=== PATIENT | female | born 1955 | race Caucasian/White ===

== ENCOUNTER → 2020-03-28 07:18 | Outpatient (CLI) | payer BC, SELFPAY ==
--- NOTE | ~2020-03-28 | MM_ITS ---
EXAMINATION: MM screening saniya BI w tyron HISTORY: Screening mammogram TECHNIQUE: Craniocaudal and mediolateral oblique 3-D tomosynthesis images were obtained and synthetic 2-D images were generated. CAD analysis was submitted and interpreted. COMPARISON: 06/23/2018, 02/27/2017 bilateral digital screening mammogram examinations BREAST PARENCHYMAL COMPOSITION: There are scattered areas of fibroglandular density. FINDINGS: Stable bilateral benign intramammary lymph nodes. There is no evidence of suspicious mass, calcification, or architectural distortion to suggest malignancy in either breast. There has been no suspicious interval change. IMPRESSION: 1. No mammographic evidence of malignancy. 2. Recommend routine screening mammography in one year. BI-RADS Category 2: Benign finding(s). Reviewed, dictated and finalized at location A. ESPONDENCE TRANSCRIBER
== END ==
PROVIDERS: PCP Student in an Organized Health Care Education/Training Program; Visit Provider Obstetrics & Gynecology
DX: Z12.31 Encounter for screening mammogram for malignant neoplasm of breast (principal)
CPT/HCPCS: 77063; 77067

== ENCOUNTER 2020-08-10 13:31 | Outpatient (CLI) | payer BC, SELFPAY ==
--- NOTE | ~2020-08-10 | US_ITS ---
EXAMINATION: US venous doppler LE RT DATE: 08/10/2020 14:14 INDICATION: Right lower limb pain. TECHNIQUE: Grayscale ultrasound images without and with compression and Doppler ultrasound images of the right lower extremity veins were obtained. COMPARISON: Ultrasound 11/13/2017 FINDINGS: The visualized portions of right common femoral vein, profunda (deep) femoral vein, femoral vein, pop liteal vein, peroneal veins, posterior tibial veins, and greater saphenous vein outflow are patent. IMPRESSION: 1. No deep venous thrombosis. Reviewed, dictated and finalized at location A.
== END 2020-08-10 13:32 | disposition home or self-care (01) ==
PROVIDERS: PCP Student in an Organized Health Care Education/Training Program; Visit Provider Registered Nurse
DX: M79.661 Pain in right lower leg (principal); M79.89 Other specified soft tissue disorders
CPT/HCPCS: 93971

== ENCOUNTER → 2021-04-03 10:28 | Outpatient (CLI) | payer BC, SELFPAY ==
--- NOTE | ~2021-04-03 | DEXA_ITS ---
Bone Density Report Name: SALMA ROWAN Age: 65 Sex: Female Ethnicity: White Date of : 1955 Indication: monitoring treatment; height loss; hysterectomy; postmenopausal Referring Provider: NANCY FELTON Study: Bone densitometry was performed. Exam Date: April 03, 2021 Accession number: [id number] Bone Density: Region BMD T-score Z-score Classification AP Spine (L1-L4) 0.954 -0.8 0.9 Normal Femoral Neck (Left) 0.912 0.6 2.0 Normal Total Hip (Left) 1.048 0.9 2.1 Normal Femoral Neck (Right) 0.919 0.6 2.1 Normal Total Hip (Right) 1.104 1.3 2.5 Normal Total Hip Mean 1.076 1.1 2.3 Normal World Health Organization criteria for BMD impression classify patients as: Normal (T-score at or above -1.0), Osteopenia (T-score between -1.0 and -2.5), or Osteoporosis (T-score at or below -2.5). 10-year Fracture Risk: FRAX not reported because: All T-scores for Spine Total, Hip Total, Femoral Neck at or above -1.0 Treated for osteoporosis Previous Exams: Region Exam Age BMD T-score BMD Change BMD Change Date g/cm2 vs Baseline vs Previous AP Spine(L1-L4) 04/03/2021 65 0.954 -0.8 0.046* -0.003 01/08/2019 63 0.958 -0.8 0.049* -0.029* 01/12/2016 60 0.987 -0.5 0.079* 0.059* 11/26/2013 58 0.928 -1.1 0.020 -0.007 11/10/2011 56 0.936 -1.0 0.027* 0.020 09/24/2009 53 0.915 -1.2 0.007 0.007 04/23/2007 51 0.909 -1.3 Total Hip(Left) 04/03/2021 65 1.048 0.9 -0.024 0.006 01/08/2019 63 1.042 0.8 -0.030* -0.041* 01/12/2016 60 1.083 1.2 0.011 0.067* 11/26/2013 58 1.015 0.6 -0.057* -0.012 11/10/2011 56 1.027 0.7 -0.045* -0.022 09/24/2009 53 1.049 0.9 -0.024 -0.024 04/23/2007 51 1.072 1.1 Total Hip(Right) 04/03/2021 65 1.104 1.3 0.105* 0.055* 01/08/2019 63 1.049 0.9 0.051* -0.009 01/12/2016 60 1.058 0.9 0.059* 0.086* 11/26/2013 58 0.971 0.2 -0.027 -0.021 11/10/2011 56 0.992 0.4 -0.006 -0.010 09/24/2009 53 1.002 0.5 0.003 0.003 04/23/2007 51 0.998 0.5 *Denotes significance at 95% confidence level, LSC for AP Spine = 0.022 g/cm2, LSC for Total Hip = 0.027 g/cm2 Clinical Information Provided by Patient:
== END ==
PROVIDERS: PCP Student in an Organized Health Care Education/Training Program; Visit Provider Obstetrics & Gynecology
DX: Z13.820 Encounter for screening for osteoporosis (principal)
CPT/HCPCS: 77080

== ENCOUNTER → 2021-05-11 12:32 | Outpatient (CLI) | payer BC, SELFPAY ==
--- NOTE | ~2021-05-11 | MM_ITS ---
EXAMINATION: MM screening saniya BI w tyron HISTORY: Screening TECHNIQUE: Craniocaudal and mediolateral oblique 3-D tomosynthesis images were obtained and synthetic 2-D images were generated. CAD analysis was submitted and interpreted. COMPARISON: Comparison to multiple prior studies sequentially, with oldest reviewed study dated 07/2014. BREAST PARENCHYMAL COMPOSITION: There are scattered areas of fibroglandular density. FINDINGS: There is no evidence of suspicious mass, calcification, or architectural distortion to sugg est malignancy in either breast. There has been no suspicious interval change. IMPRESSION: 1. No mammographic evidence of malignancy. 2. Recommend routine screening mammography in one year. BI-RADS Category 1: Negative Reviewed, dictated and finalized at location A. OBIOLOGY QUALITY CONTROL TECHNICIAN
== END ==
PROVIDERS: PCP Student in an Organized Health Care Education/Training Program; Visit Provider Obstetrics & Gynecology
DX: Z12.31 Encounter for screening mammogram for malignant neoplasm of breast (principal)
CPT/HCPCS: 77063; 77067

== ENCOUNTER → 2022-07-21 08:02 | Outpatient (CLI) | payer MEDICARE, SELFPAY ==
--- NOTE | ~2022-07-21 | MM_ITS ---
EXAMINATION: MM screening saniya BI w tyron HISTORY: Screening TECHNIQUE: Craniocaudal and mediolateral oblique 3-D tomosynthesis images were obtained and synthetic 2-D images were generated. CAD analysis was submitted and interpreted. COMPARISON: Comparison to multiple prior studies sequentially, with oldest reviewed study dated 01/11. BREAST PARENCHYMAL COMPOSITION: There are scattered areas of fibroglandular density. FINDINGS: There is no evidence of suspicious mass, calcification, or architectural distortion to sugg est malignancy in either breast. There has been no suspicious interval change. IMPRESSION: 1. No mammographic evidence of malignancy. 2. Recommend routine screening mammography in one year. BI-RADS Category 1: Negative Reviewed, dictated and finalized at location A.
== END ==
PROVIDERS: PCP Student in an Organized Health Care Education/Training Program; Visit Provider Obstetrics & Gynecology
DX: Z12.31 Encounter for screening mammogram for malignant neoplasm of breast (principal)
CPT/HCPCS: 77063; 77067

== ENCOUNTER 2023-04-08 12:11 | Outpatient (CLI) | payer MEDICARE, SELFPAY ==
--- NOTE | ~2023-04-08 | DEXA_ITS ---
Bone Density Report Name: SALMA ROWAN Age: 67 Sex: Female Ethnicity: White Date of : 1955 Indication: postmenopausal; screening for osteoporosis; height loss; cancer; hysterectomy; Referring Provider: WILBER ROMERO Study: Bone densitometry was performed. Exam Date: April 08, 2023 Accession number: [id number] Bone Density: Region BMD T-score Z-score Classification AP Spine(L1-L4) 0.878 -1.5 0.3 Osteopenia Femoral Neck (Left) 0.861 0.1 1.7 Normal Total Hip (Left) 1.031 0.7 2.0 Normal Femoral Neck (Right) 0.857 0.1 1.7 Normal Total Hip (Right) 1.052 0.9 2.2 Normal Femoral Neck Mean 0.859 0.1 1.7 Normal Total Hip Mean 1.042 0.8 2.1 Normal World Health Organization criteria for BMD impression classify patients as: Normal (T-score at or above -1.0), Osteopenia (T-score between -1.0 and -2.5), or Osteoporosis (T-score at or below -2.5). 10-year Fracture Risk(1): Major Osteoporotic Fracture 6.6% Hip Fracture 0.2% Reported Risk Factors: [place] (), Neck BMD=0.857, BMI=29.8 (1) FRAX(R) Version 3.08. Fracture probability calculated for an untreated patient. Fracture probability may be lower if the patient has received treatment. Clinical Information Provided by Patient: Has used the following medications: Vitamin D, Calcium Has the following medical conditions: Cancer, Hysterectomy Patient maximum height was 64 Menopause Age: 55 No regular weight bearing exercise Drinks caffeinated beverages Onset of menses at age 11 Number of children 1 Impression: The patient has low bone mass, based on the Total Spine T-score. Discussion: BONE DENSITY IS LOW AT ONE OR MORE SKELETAL SITES. This patient's lowest T-score is low at one or more skeletal sites. It meets the World Health Organization's (WHO) criteria for ?low bone mass? (T-score between -1.0 and -2.5). The patient's 10-year risk of fracture as calculated by FRAX is less than the threshold where pharmacological therapy is recommended by the National Osteoporosis Foundation (NOF). However, all treatment decisions require clinical judgment and consideration of individual patient factors, including patient preferences, comorbidities, previous drug use, risk factors not captured in the FRAX model (e.g., frailty, falls, vitamin D deficiency, increased bone turnover, interval significant decline in bone density) and possible under or overestimation of fracture risk by FRAX. The patient should follow a healthful lifestyle (good nutrition with adequate calcium and vitamin D, and appropriate weight-bearing exercise). Follow-Up: Consider repeating this study in 2 to 3 years to reassess this patient's status, or sooner if there is some new clinical indication. Reported by: Dr. Lukasz Giraldo on 04/08/2023 12:33:00 PM. Reviewed
== END 2023-04-08 12:12 | disposition home or self-care (01) ==
LOC: CHSIMG 12:13
PROVIDERS: PCP Student in an Organized Health Care Education/Training Program; Visit Provider Registered Nurse
DX: Z78.0 Asymptomatic menopausal state (principal); M85.88 Other specified disorders of bone density and structure, other site
CPT/HCPCS: 77080

== ENCOUNTER 2023-08-07 12:59 | Outpatient (CLI) | payer MEDICARE, SELFPAY ==
--- NOTE | ~2023-08-07 | MM_ITS ---
EXAMINATION: MM screening saniya BI w tyron HISTORY: Screening mammogram TECHNIQUE: Craniocaudal and mediolateral oblique 3-D tomosynthesis images were obtained and synthetic 2-D images were generated. CAD analysis was submitted and interpreted. COMPARISON: 07/21/2022, 05/11/2021, 03/28/2020 bilateral screening mammogram examinations BREAST PARENCHYMAL COMPOSITION: There are scattered areas of fibroglandular density. FINDINGS: There is no evidence of suspicious mass, calcification, or architectural distortion to sugg est malignancy in either breast. There has been no suspicious interval change. IMPRESSION: 1. No mammographic evidence of malignancy. 2. Recommend routine screening mammography in one year. BI-RADS Category 1: Negative Reviewed, dictated and finalized at location A.
== END 2023-08-07 13:00 | disposition home or self-care (01) ==
LOC: CHSIMG 13:03
PROVIDERS: PCP Student in an Organized Health Care Education/Training Program; Visit Provider Registered Nurse
DX: Z12.31 Encounter for screening mammogram for malignant neoplasm of breast (principal)
CPT/HCPCS: 77063; 77067

== ENCOUNTER 2024-08-19 09:47 | Outpatient (CLI) | payer MEDICARE, SELFPAY ==
--- NOTE | ~2024-08-19 | MM_ITS ---
EXAMINATION: MM screening saniya BI w tyron HISTORY: Screening TECHNIQUE: Craniocaudal and mediolateral oblique 3-D tomosynthesis images were obtained and synthetic 2-D images were generated. CAD analysis was submitted and interpreted. COMPARISON: Comparison to multiple prior studies sequentially, with oldest reviewed study dated 04/2016. BREAST PARENCHYMAL COMPOSITION: Not dense: There are scattered areas of fibroglandular density. FINDINGS: There are no suspicious masses, calcifications or distortion in either breast to suggest ma lignancy. There is no evidence of suspicious mass, calcification, or architectural distortion to sugg est malignancy in either breast. There has been no suspicious interval change. IMPRESSION: 1. No mammographic evidence of malignancy. 2. Recommend routine screening mammography in one year. BI-RADS Category 1: Negative Reviewed, dictated and finalized at location A.
--- OUTSIDE RECORDS SUMMARY | 2024-08-19 11:04 | XMS_ITS | Encounter Summary ---
Author Organization [facility] Address [address] [place] [address] Care Team Providers Care Cream Separator Operator Name Role Phone Arnaldo Mohan DO Primary Care Provider + Rome Sheridan MD Unavailable Encounter Details Date Type Department Care Team (Late st Contact Info) Description 01/01/2019 Veltit Message Enc [facility] Family & Internal Medicine [facility] [address] [place] [address] Arnaldo Mohan DO [facility] [place] [address] RE: Test Results Social History Tobacco Use Types Packs/Day Years Used Date Smoking Tobacco: Never Smokeless Tobacco: Never Alcohol Use Standard Drinks/Week Comments Yes 0 (1 standard drink = 0.6 oz pur e alcohol) Rarely Comments Unknown Sex and Gender Information Value Date Recorded Sex Assigned at Female 08/16/2023 9:41 AM CDT Legal Sex Female 12:51 PM CDT Gender Identity Female 08/16/2023 9:41 AM CDT Sexual Orientation Not on file Occupation Industry Job Start Date Job End Date Not on file Not on file Not on file Not on file documented as of this encounter Plan of Treatment Not on file documented as of this encounter Visit Diagnoses Not on filedocumented in this encounter Additional Health Concerns Infection Onset Date Last Indicated Resolved Time COVID-19 Rule Out 03/30/2021 03/30/202103/30/2021 9:27 AM VISION CARE ASSOCIATE Assessment Noted Time PHQ-9 Depression Total Score: 6 12/05/19 10:51 AM CDT documented as of this encounter Care Teams Cream Separator Operator Relationship Specialty Start Date End Date Arnaldo Mohan DO [address] [place] [id number] PCP - General FAMILY PRACTICE 10/24/18 Rome Sheridan MD [address] [facility] [address] [place] [address] [employer] Conductor CARDIOVASCULAR DISEASE 06/18/19 documented as of this encounter
--- OUTSIDE RECORDS SUMMARY | 2024-08-19 11:04 | XMS_ITS | Clinical Summary ---
Author Organization [facility] Address [address] [place] [address] Care Team Providers Care Hammer Setter Name Role Phone Arnaldo Mohan Maliha RIOS Primary Care Provider + Rome Sheridan MD Unavailable [phone] Allergies No known active allergies Medications Cholecalciferol (VITAMIN D3) 2000 units Tab Take 2 capsules by mouth daily. Active multi vitamin/minerals tablet Take 1 tablet by mouth daily. Active MYRBETRIQ 50 MG 24 hr tablet Take 1 tablet (50 mg total) by mouth daily. Active cetirizine (ZYRTEC) 10 MG tablet Take 1 tablet (10 mg total) by mouth daily. 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 Overview (12/04/2018): Overview: NONTOX NODUL GOITER NOS Immunizations Immunization Administration Dates Next Due Fluarix 03/01/2015 Flucelvax 6 Months+ (Prefilled Syringe) 02/12/20 19,02/12/2017 Fluzone 6 Months+ Quad (0.5 mL Prefilled Syringe) 01/20/2020 Fluzone High Dose (IIV, trivalent, 0.5mL) 2023 Fluzone High Dose - >Age 65 (Prefilled Syringe) 01/30/2023,02/14/2022 Influenza (Generic) 03/02/2015 Influenza Adult (Generic) 02/08/2021,02/04/2018, 03/05/2016 PFIZER COVID-19 (ORIGINAL FO RMULATION, PURPLE CAP) mRNA, LNP-S, PF, 30 MCG/0.3 ML DOSE 10/03/2021 Pneumococcal (Pneumovax 23) 04/29/2007 Pneumococcal (Prevnar 20) 11/26/2021 Pneumococcal(Ppv 23)Aka Pneumovax 04/29/2007 Shingrix 07/01/2018,01/28/2018 Td (Tenivac) preservative free 04/29/2007 Tdap (Historical Only-select from magnify glass) 01/20/2020 Family History Medical History Relation Comments Cancer Father Lung cancer Diabetes Maternal Grandmother Cancer Mother Lung cancer Emphysema Mother Relation Status Comments Father Maternal Grandmother Mother Social History Tobacco Use Types Packs/Day Years Used Date Smoking Tobacco: Never Smokeless Tobacco: Never Tobacco Cessation:Counseling Given: Not Answered Alcohol Use Standard Drinks/Week Comments Yes 0 (1 standard drink = 0.6 oz pur e alcohol) Rarely PHQ-2 Answer Date Recorded Patient Health Questionnaire-2 Score 0 11/18/2023 Comments No Sex and Gender Information Value Date Recorded Sex Assigned at Female 08/16/2023 9:41 AM CDT Legal Sex Female 12:51 PM CDT Gender Identity Female 08/16/2023 9:41 AM CDT Sexual Orientation Not on file 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 Not on file Not on file Not o n file Last Filed Vital Signs Vital Sign Reading Time Taken Comments Blood Pressure 128/86 11/29/2023 8:03 AM CDT Pulse 87 11/29/2023 8:03 AM CDT Temperature 36.4 C (97.5 F) 11/29/2023 8:03 AM CDT Respiratory Rate 16 11/29/2023 8:03 AM CDT Oxygen Saturation 98% 11/29/2023 8:03 AM CDT Inhaled Oxygen Concentration - - Weight 69.4 kg (153 lb 1.6 oz) 11/29/2023 8:03 A M CDT Height 160 cm (5' 3 ) 11/29/2023 8:03 AM CDT Body Mass Index 27.12 11/29/2023 8:03 AM CDT Plan of Treatment Health Maintenance Due Date Last Done Comments Annual Medicare Wellness Visit 12/30/2022 12/29/2021 PHQ-2 (Physician [place]) 04/29/2024 11/18/2023 COVID-19 Vaccine ( season) 2024 01/30/2024, 01/30/2023, 02/07/2022, Additional history exists Mammogram Screening 08/06/2025 08/07/2023, 07/21/2022, 05/11/2021, Additional history exists Colorectal Cancer Screening Colonoscopy (10 Years) 06/01/2029 06/01/2019 DTaP, Tdap and Td Vaccines (2 - Td or Tdap) 01/19/2030 01/20/2020, 04/29/2007 RSV Immunization or 60+ Years (1 - 1-dose 75+ series) 11/07/2031 Zoster Vaccines Completed 07/01/2018, 01/28/2018 Pneumococcal Vaccine: 50+ Years Completed 11/26/2021, 04/29/2007, 04/29/2007 Hepatitis C Completed 01/11/2022, 12/24/2018 Dexa Scan (General) Completed 04/08/2023, 04/03/2021, 01/08/2019 Meningococcal B Vaccine Aged Out No l onger eligible based on patient's age to complete this topic Meningococcal Vaccine Aged Out No fco kim eligible based on patient's age to complete this topic RSV Immunizations Under 20 Months Aged Out No longer eligible based on patient's age to complete this topic Medical Devices Implanted Type Area Utility Pipe Layer Device Identifier Shelf Expiration Date Model / Serial / Lot Iol [place] - [id number] Implanted:Qty: 1 on 04/06/2019 by Hollis Kumar MD at [facility] [employer] 10/09/2022 [facility]00 / [id number] / Procedures Procedure Name Priority Date/Time Associated Diagnosis Comments MAMMOGRAM GENERIC (SCAN ORDER) 08/07/2023 BONE DENSITY GENERIC (SCAN ORDER) 04/08/2023 HEPATITIS C ANTIBODY Routine 01/11/2022 7:28 AM CDT Routine general medical examination at a health care facility Need for hepatitis C screening test COLONOSCOPY GENERIC (SCAN ORDER) Routine 06/01/2019 from Last 3 Months or Most Recently Relevant to Health Maintenance Results * MAMMOGRAM GENERIC (SCAN ORDER) (08/07/2023) Anatomical Region Laterality Modality Other 08/07/2023 [facility] Scanned SCANNING Final Resu lt * BONE DENSITY GENERIC (04/08/2023) Anatomical Region Laterality Modality Other 04/08/2023 [facility] Scanned SCANNING Final Resu lt * HEPATITIS C AB ([facility] ONLY) (01/11/2022 7:28 AM CDT) HEPATITIS C AB NON-REACTI VE NON-REACT ZAFAR 01/11/2022 11:08 PM CDT [facility] Comment: ANTIBODIES TO HCV NOT DETECTED. DOES NOT EXCLUDE THE POSSIBILITY OF EXPOSURE TO HCV. 01/11/2022 7:28 AM CDT us Arnaldo Mohan DO LABORATORY Final Re sult [facility] [address] [place] [address], [id number] * COLONOSCOPY (06/01/2019) us Documents Scanned SCANNING Edited Result - Final [facility] ONBASE from Last 3 Months or Most Recently Relevant to Health Maintenance Insurance [employer] Advance Directives Documents on File Type Date Recorded Patient Color Consultant Expl anation Power of Cloth Edge Singer 01/11/2022 7:25 AM power of electrical electronics engineer Care Teams Hammer Setter Relationship Specialty Start Date End Date Arnaldo Mohan DO [address] [place] [id number] PCP - General FAMILY PRACTICE 10/24/18 Rome Sheridan MD [address] [facility] [address] [place] [phone] [employer] Supervisor CARDIOVASCULAR DISEASE 06/18/19
--- OUTSIDE RECORDS SUMMARY | 2024-08-19 11:04 | XMS_ITS | Encounter Summary ---
Author Organization [facility] Address [address] [facility] [place] [address] Care Team Providers Care Senior Solutions Consultant Name Role Phone Arnaldo Mohan DO Primary Care Provider + Encounter Details Date Type Department Care Team (Late st Contact Info) Description 08/21/2023 Lab Requisition [facility] - DermPath Lab [address] [facility] [place] [phone] Manuel Monson MD [facility] DERMATOLOGY [address] [place] [phone] Other follicular cysts of the skin and subcutaneous tissue; Other disturbances of skin sensation Social History Tobacco Use Types Packs/Day Years Used Date Smoking Tobacco: Never Assessed Comments Unknown Sex and Gender Information Value Date Recorded Sex Assigned at Not on file Legal Sex Female 6:33 AM [employer] Gender Identity Not on file Sexual Orientation Not on file documented as of this encounter Plan of Treatment Not on file documented as of this encounter Procedures Procedure Name Priority Date/Time Associated Diagnosis Comments DERMATOPATHOLOGY Routine 08/21/2023 3:33 AM CDT Other follicular cysts of the skin and subcutaneous tissue Other disturbances of skin sensation documented in this encounter Results * DERMATOPATHOLOGY (08/21/2023 3:33 AM CDT) Case Report Dermatopathology Report Case: [id number] Authorizing Provider: Manuel Monson MD Collected: 08/21/2023 03:33 AM Ordering Location: [facility] - Received: 08/23/2023 09:23 AM DermPath Lab Pathologist: Alejandra Bullock MD Specimen: Skin, left superior parietal scalp 2:39 PM CDT DERMATOPATHOLOGY LABORATORY Final Diagnosis Specimen A. SKIN, left superior parietal scalp: TRICHILEMMAL (PILAR) CYST (L72.12) PRESENT AT MARGIN 2:39 PM CDT DERMATOPATHOLOGY LABORATORY Clinical History Cyst. Check margins. 2:39 PM CDT DERMATOPATHOLOGY LABORATORY Gross Description Specimen A: Received is one formalin filled container labeled with the patient's name and designated left superior parietal scalp. The specimen consists of a [id number] mm piece of skin. The specimen is serially sectioned and a cash posting representative section is submitted in cassette 1. Jar 1. 2:39 PM CDT DERMATOPATHOLOGY LABORATORY Microscopic Description Specimen A. SKIN, left superior parietal scalp: Sections show a cyst that is lined by stratified squamous epithelium that shows trichilemmal keratinization (no granular layer). There is homogeneous pink keratin within the cyst. This lesion is present at the margin of the specimen. 2:39 PM CDT DERMATOPATHOLOGY LABORATORY Disclaimer An external and internal positive and negative controls are appropriate for the histochemical, immunohistochemical and immunofluorescence stain(s) in this case (if any), except where stated explicitly. The performance characteristics of the stain(s) cited in this report were developed and its performance characteristic determined by the Dermatopathology Laboratory at [facility], directed by Dr. Kimber Avila. These tests need not be, and therefore are not, approved by the [place] Food and Drug Administration. The tests are used for clinical purposes. Billing Codes Specimen Charges Stain Charges 97085 1 2:39 PM CDT DERMATOPATHOLOGY LABORATORY Embedded Images 2:39 PM CDT DERMATOPATHOLOGY LABORATORY Pathology/Cytolo gy TISSUE SPECIMEN FROM SKIN / Unknown 08/21/2023 3:33 AM CDT 08/23/2023 9:23 AM CDT us Manuel Monson MD LAB - PATHOLOGY/CYTOLOGY CHANDRAKANTJimmy JAN Final Result DERMATOPATHOLOGY LABORATORY [facility] - Department of Dermatology [address] [phone] documented in this encounter Visit Diagnoses Diagnosis Other follicular cysts of the skin and subcutaneous tissue Other disturbances of skin sensation documented in this encounter Care Teams Senior Solutions Consultant Relationship Specialty Start Date End Date Arnaldo Mohan DO [address] [place] [id number] PCP - General Family Medicine Geriatric Medicine 12/12/23 documented as of this encounter
--- OUTSIDE RECORDS SUMMARY | 2024-08-19 11:04 | XMS_ITS | Referral Summary ---
Author Organization [facility] Medical Office Building B Address [address] [place] [address] Care Team Providers Care Hand Salter Name Role Phone Sujit Segundo MD Primary Care Provider [phone] [phone] Encounters Date Type Department Care Team Description 07/24/2024 2:45 PM CDT Office Visit [facility] Orthopedics and Sports Medicine [address] [place] [address] Naomi Chapman PA Adhesive capsulitis of left knee (Primary Dx); Traumatic incomplete tear of left rotator cuff, initial encounter; Subacromial impingement of left shoulder from Last 3 Months Allergies No known active allergies Medications ALPRAZolam (XANAX) 0.5 mg tablet Take 1-2 tablets (0.5-1 mg total) by mouth once for 1 dose Take 30 minutes prior to MRI. Do not drive after taking medication. 2 tablet 4 Active albuterol HFA (PROVENTIL HFA,VENTOLIN HFA,PROAIR HFA) 90 mcg/actuation inhaler Inhale 2 puffs every 4 (four) hours as needed 1 Active azithromycin (ZITHROMAX) 250 mg tablet Take 2 tabs daily for one day, then take 1 tab daily 4 Active cholecalciferol (VITAMIN D-3) 2000 unit tablet Take 2 tablets (4,000 Units total) by mouth daily Active cetirizine (ZyrTEC) 10 mg tablet Take 1 tablet (10 mg total) by mouth daily Active mirabegron ER (MYRBETRIQ) 50 mg tablet extended release 24 hr Take 1 tablet (50 mg total) by mouth daily Active ondansetron ODT (ZOFRAN-ODT) 4 mg disintegrating tablet Take 1 tablet (4 mg total) by mouth every 8 (eight) hours as needed Active Hospital, Clinic, or Other Facility Administered Medication Ordered Dose Route Frequency Start Date End Date Status lidocaine (XYLOCAINE) 20 mg/mL (2 %) injection 3 mLIndications:Admi nistration of Local Anesthesia 3 mL One-Time Injection 07/24/2024 07/24/2024 Ended methylPREDNISolone acetate (DEPO-medrol) injection 80 mgIndications:Kasey lizarraga incomplete tear of left rotator cuff, initial encounter,Subacrom ial impingement of left shoulder 80 mg intra-artic One-Time Injection 07/24/2024 07/24/2024 Ended Active Problems Problem Noted Date Diagnosed Date Screen for colon cancer 05/11/2019 Overview (05/11/2019): Added automatically from request for surgery [id number] 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 Never 07/24/2024 Q2: How many drinks containi ng alcohol do you have on a typical day when you are drinking? Patient does not drink Q3: How often do you have si x or more drinks on one occasion? 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 Gender Identity Not on file Sexual Orientation Not on file Last Filed Vital Signs Vital Sign Reading Time Taken Comments Blood Pressure 126/70 07/24/2024 3:08 PM CDT Pulse 75 07/24/2024 3:08 PM CDT Temperature - - Respiratory Rate - - Oxygen Saturation - - Inhaled Oxygen Concentration - - Weight 71.7 kg (158 lb) 07/24/2024 3:08 PM CDT Height 160 cm (5' 3 ) 07/24/2024 3:08 PM CDT Body Mass Index 27.99 07/24/2024 3:08 PM CDT Plan of Treatment Not on file Procedures Procedure Name Priority Date/Time Associated Diagnosis Comments [place] ARTHROCENTESIS ASPIR&/INJ MAJOR JT/BURSA W/O US Routine 07/24/2024 2:45 PM CDT Traumatic incomplete tear of left rotator cuff, initial encounter Subacromial impingement of left shoulder from Last 3 Months Results * WA ARTHROCENTESIS ASPIR&/INJ MAJOR JT/BURSA W/O US (07/24/2024 2:45 PM CDT) Narrative Naomi Chapman PA - 07/24/2024 2:45 PM CDT Naomi Chapman PA 08/07/2024 11:56 AM Large Joint (Hip, Knee, Shoulder) Injection: L glenohumeral Performed by: Naomi Chapman PA Authorized by: Naomi Chapman PA Large Joint Injection/Aspiration: Consent Given by: Patient Site marked: the procedure site was marked Timeout: prior to procedure the correct patient, procedure, and site was verified Verbal consent obtained: Yes Supporting Documentation: Indications: Pain Procedure Details: Location: Shoulder Site: L glenohumeral Prep: patient was prepped and draped in usual sterile fashion Needle Size: 22 G Approach: Posterior Ultrasound guided: No Fluroscopic guidance: No Medications: 80 mg methylPREDNISolone acetate 80 mg/mL; 3 mL lidocaine 20 mg/mL (2 %) Patient tolerance: Patient tolerated the procedure well with no immediate complications Naomi [facility]ON IN CLINIC/BEDSIDE ORDER DALIA Final Result from Last 3 Months Insurance [employer] MEDICARE Care Teams Hand Salter Relationship Specialty Start Date End Date Sujit Segundo MD [address] [address] PCP - General 12/27/09
--- OUTSIDE RECORDS SUMMARY | 2024-08-19 11:04 | XMS_ITS | Clinical Summary ---
Author Organization [facility] Medical Office Building B Address [address] [place] [address] Care Team Providers Care Senior Qa Analyst Name Role Phone Sujit Segundo MD Primary Care Provider [phone] [phone] Allergies No known active allergies Medications ALPRAZolam [...] mouth every 8 (eight) hours as needed 1 Active Hospital, Clinic, or Other Facility Administered [...] (05/11/2019): Added automatically from request for surgery [id number] Non-toxic nodular goiter 09/12/2013 Overview (08/04/2016): NONTOX NODUL GOITER NOS Encounters Date Type Department Care Team Description 07/24/2024 2:45 PM CDT Office Visit [facility] Orthopedics and Sports Medicine [address] [place] [phone] Naomi Chapman PA Adhesive capsulitis of left knee (Primary Dx); Traumatic incomplete tear of left rotator cuff, initial encounter; Subacromial impingement of left shoulder from Last 3 Months Surgical History Surgery Date Site/Laterality Comments APPENDECTOMY Appendectomy OTHER SURGICAL HISTORY D&C TUBAL LIGATION Bilateral tubal ligation Medical History Medical History Date Comments Calculus of kidney kidney stones Family History Medical History Relation Name Comments Diabetes type II Other Family hist ory of Diabetes -Type 2; Other Other No family histo ry of Thyroid disorder; Relation Name Status Comments Other Social History Tobacco Use Types Packs/Day Years [...] on file 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 Gender Identity Not on file Sexual Orientation Not on file Obstetrics History Last Filed Vital Signs Vital Sign Reading [...] 07/24/2024 3:08 PM CDT Plan of Treatment Health Maintenance Due Date Last Done Comments Breast Cancer Screening-Mammogram 1955 Colon Cancer Screening-Colonoscopy 1956 Depression Screening 1956 Fall Risk Assessment 1956 Hepatitis C Screening 1956 Osteoporosis Screening-Bone Density Scan 1956 Hepatitis B Screening 1974 Well Visit 65+ 2021 Covid-19 Vaccine (2023-2 5 season) 2024 01/30/2024, 01/30/2023, 02/07/2022, Additional history exists DTaP/Tdap/Td Vaccine (2 - Td or Tdap) 01/19/2030 01/20/2020, 04/29/2007 Zoster Vaccine Completed 07/01/2018, 01/28/2018 Pneumococcal vaccine 65+ Completed 11/26/2021, 04/2007 Influenza Vaccine Completed 01/30/2024, , 02/14/2022, Additional history exists Procedures Procedure Name Priority Date/Time Associated Diagnosis Comments NM ARTHROCENTESIS ASPIR&/INJ MAJOR JT/BURSA W/O US Routine 07/24/2024 2:45 PM CDT Traumatic incomplete tear of left rotator cuff, initial encounter Subacromial impingement of left shoulder from Last 3 Months Results * NM ARTHROCENTESIS ASPIR&/INJ MAJOR JT/BURSA W/O US (07/24/2024 [...] Final Result from Last 3 Months Insurance [facility] MEDICARE Care Teams Senior Qa Analyst Relationship Specialty Start Date End Date Sujit Segundo MD [address] [address] PCP - General 12/27/09
--- OUTSIDE RECORDS SUMMARY | 2024-08-19 11:04 | XMS_ITS | Encounter Summary ---
Author Organization [facility] Address [address] [place] [address] Care Team Providers Care Board Certified Music Therapist Name Role Phone Arnaldo Mohan DO Primary Care Provider + Encounter Details Date Type Department Care Team (Late st Contact Info) Description 05/30/2023 Lab Requisition [facility] - DermPath Lab [address] [place] [id number] Manuel Monson MD [facility] [address] [place] [phone] Neoplasm of uncertain behavior of skin Social History Tobacco Use Types Packs/Day Years Used Date Smoking Tobacco: Never Assessed Comments Unknown Sex and Gender Information Value Date Recorded Sex Assigned at Not on file Legal Sex Female 6:33 AM CERTIFIED MEDICATION TECHNICIAN Gender Identity Not on file Sexual Orientation Not on file documented as of this encounter Plan of Treatment Not on file documented as of this encounter Procedures Procedure Name Priority Date/Time Associated Diagnosis Comments DERMATOPATHOLOGY Routine 05/30/2023 3:33 AM CERTIFIED MEDICATION TECHNICIAN Neoplasm of uncertain behavior of skin documented in this encounter Results * DERMATOPATHOLOGY (05/30/2023 3:33 AM CERTIFIED MEDICATION TECHNICIAN) Case Report Dermatopathology Report Case: [id number] Authorizing Provider: Manuel Monson MD Collected: 05/30/2023 03:33 AM Ordering Location: [facility] DermPath Lab Received: 05/31/2023 04:10 PM Pathologist: Le Louis MD Specimen: Skin, nasal bridge 4 5:24 PM [facility] Final Diagnosis Specimen A. SKIN, nasal bridge: SQUAMOUS CELL CARCINOMA, WELL DIFFERENTIATED (C44.329) 4 5:24 PM [facility] DERMATOPATHOLOG[facility] Clinical History Squamous Cell Carcinoma vs. Verruca Vulgaris 4 5:24 PM [facility]MAT[facility] Gross Description Specimen A: Received is one formalin filled container labeled with the patient's name and designated nasal bridge. The specimen consists of a shave biopsy measuring 5x4x4 mm. Jar 0. 4 5:24 PM [facility] Microscopic Description Specimen A. SKIN, nasal bridge: Arising in the epidermis and extending into the dermis there are irregularly shaped aggregates of keratinocytes showing evidence of premature cornification. 4 5:24 PM [facility]ERMATOPATHOLOGY [facility] Disclaimer An external and internal positive and negative controls are appropriate for the histochemical, immunohistochemical and immunofluorescence stain(s) in this case (if any), except where stated explicitly. The performance characteristics of the stain(s) cited in this report were developed and its performance characteristic determined by the Dermatopathology Laboratory at [facility], directed by Dr. Kimber Avila. These tests need not be, and therefore are not, approved by the [place] Food and Drug Administration. The tests are used for clinical purposes. Billing Codes Specimen Charges Stain Charges 68066 1 4 5:24 PM [facility] Embedded Images 4 5:24 PM [facility] Pathology/Cytolo gy TISSUE SPECIMEN FROM SKIN / Unknown 05/30/2023 3:33 AM CERTIFIED MEDICATION TECHNICIAN 05/31/2023 4:10 PM CERTIFIED MEDICATION TECHNICIAN us Manuel Monson MD LAB - PATHOLOGY/CYTOLOGY ORDE JAN Final Result DERMATOPATHOLOGY LABORATORY [facility] - Department of Dermatology [address], [address] [phone] documented in this encounter Visit Diagnoses Diagnosis Neoplasm of uncertain behavior of skin documented in this encounter Care Teams Board Certified Music Therapist Relationship Specialty Start Date End Date Arnaldo Mohan DO [address] [place] [phone] PCP - General Family Medicine Geriatric Medicine 12/12/23 documented as of this encounter
--- OUTSIDE RECORDS SUMMARY | 2024-08-19 11:04 | XMS_ITS | Clinical Summary ---
Author Organization [facility] Address [address], [facility] [address] [place] [address] Phone Care Team Providers Care Roller Coaster Operator Name Role Phone Arnaldo Mohan Primary Care Provider + Allergies No known active allergies Medications Cholecalciferol (VITAMIN D PO) Take by mouth daily. Active Estrogens Conj Synthetic B 0.45 MG Tablet Take 0.45 mg by mouth daily. Active Multiple Vitamin (MULTI-VITAMIN PO) Take by mouth every morning. Active Esterified Estrogens (MENEST PO) Take by mouth. Act jase ondansetron (ZOFRAN-ODT) 4 MG TABLET DISPERSIBLEIndi cations:Nausea Take 1 Tab by mouth every 8 hours as needed for Nausea - 1st line. 10 Tab 1 Active Additional Information Patient not taking.Reported on 05/15/2020 albuterol (ProAir HFA) 108 (90 Base) MCG/ACT Aerosol SolutionIndicat ions:Cough take 2 Puffs by inhalation every 4 hours as needed for Wheezing or Cough. 1 Inhaler 1 Active Additional Information Patient not taking.Reported on 01/13/2023 Myrbetriq 50 MG TABLET SR 24 HR Take 1 Tablet by mouth daily. 3 Active Active Problems Problem Noted Date Diagnosed Date Kidney stones Immunizations Immunization Administration Dates Next Due Influenza Vaccine greater than 3 yrs 03/02/2015 Pneumococcal Vaccine Adult - 23 Valent 8 TD VACCINE 04/29/2007 Family History Medical History Relation Name Comments Cancer Father Lung Cancer Mother Lung Relation Name Status Comments Father Mother Social History Tobacco Use Types Packs/Day Years Used Date Smoking Tobacco: Never Smokeless Tobacco: Never Alcohol Use Standard Drinks/Week Comments No 0 (1 standard drink = 0.6 oz pur e alcohol) Comments No Sex and Gender Information Value Date Recorded Sex Assigned at Not on file Legal Sex Female 9:23 PM CDT Gender Identity Not on file Sexual Orientation Not on file Last Filed Vital Signs Vital Sign Reading Time Taken Comments Blood Pressure 128/72 01/13/2023 3:42 PM CDT Pulse 86 01/13/2023 3:42 PM CDT Temperature 36.5 C (97.7 F) 01/13/2023 3:42 PM CDT Respiratory Rate 20 05/15/2020 2:30 PM DATA MANAGEMENT Oxygen Saturation 96% 01/13/2023 3:42 PM CDT Inhaled Oxygen Concentration - - Weight 72.6 kg (160 lb) 01/13/2023 3:42 PM CDT Height 162.6 cm (5' 4 ) 05/15/2020 2:30 PM DATA MANAGEMENT Body Mass Index 27.46 05/15/2020 2:30 PM DATA MANAGEMENT Plan of Treatment Health Maintenance Due Date Last Done Comments DEXA Bone Density 1955 Mammogram 1956 Cologuard 2006 Immunochemical Fecal Occult Blood 2006 Influenza Immunization (#1) 12/29/202301/27, 02/08/2021, 01/20/2020, Additional history exists SARS-COV-2 Immunization ( season) 2023 02/07/2022, 10/03/2021, 03/03/2021, Additional history exists Colonoscopy 06/01/2026 06/01/2019 Colorectal Cancer Screening 06/01/2026 Respiratory Syncytial Virus (RSV) Immunization (Adult) (1 - 1-dose 75+ series) 11/07/2031 06/01/2019 Zoster Immunization Completed 07/01/2018, 8 Hepatitis C Virus (HCV) Screening Completed 12/24/2018 DTaP/Tdap/Td Immunization Discontinued 01/20/2020, 04/2007 TdaP Immunization Completed 01/20/2020 Pneumococcal Immunization (50+ years) Completed 11/26/2021, 04/29/2007 Pneumococcal Immunization Combined Discontinued 11/26/2021, 04/29/2007 Hepatitis B Immunization Aged Out No longer eligible based on patient's age to complete this topic Meningococcal Immunization (ACWY) Aged Out No longer eligible based on patient's age to complete this topic Rotavirus Immunization Aged Out No lo nger eligible based on patient's age to complete this topic Procedures Procedure Name Priority Date/Time Associated Diagnosis Comments HEPATITIS C ANTIBODY Routine 12/24/2018 8:53 AM CDT Need for hepatitis C screening test from Last 3 Months or Most Recently Relevant to Health Maintenance Results * HEPATITIS C ANTIBODY (12/24/2018 8:53 AM CDT) hepatitis C antibody 0.07 <1 S/CO 12/24/2018 10:00 PM CDT [facility] Comment: Signal/Cutoff ratio < 0.79 is Nondetected Signal/Cutoff ratio 0.80-0.99 is Grayzone Signal/Cutoff ratio > 0.99 is Detected Supplemental assays are recommended if signal/cutoff ratio is >/=1.00. Signal/cutoff ratio result >/= 5.00 is 97% predictive of positivity for recombinant immunoblot assay (RIBA) and will be reported to the [place] Department of Public Health as required. Blood specimen (specimen) Butterfly Puncture / Unknown 12/24/2018 8:53 AM CDT 12/24/2018 10:11 AM CDT us Arnaldo Mohan DO CHEMISTRY ORDERABLES Fin al Result [facility] [address] [place] [address], [place] from Last 3 Months or Most Recently Relevant to Health Maintenance Insurance [facility] [place] [id number] Care Teams Roller Coaster Operator Relationship Specialty Start Date End Date Arnaldo Mohan DO [address] [place], [place] [phone] PCP - General Family Medicine 12/24/18
--- OUTSIDE RECORDS SUMMARY | 2024-08-19 11:04 | XMS_ITS | Clinical Summary ---
Author Organization [facility] Address [address] [place] [address] Care Team Providers Care Entertainment Production Professional Name Role Phone Arnaldo Mohan Primary Care Provider + Source Comments [facility],non-owned Affiliates and Associated Physician Practices is amultiple site organization consisting of ambulatory clinics and hospital sitesin [place], [place], [place] and [place]. This disclosure is being madepursuant to the Care Everywhere program and may not contain all information available regarding this patient. 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 Gender Identity Not on file Sexual Orientation Not on file Plan of Treatment Health Maintenance Due Date Last Done Comments BONE DENSITY TESTING 1955 COLOGUARD (AGES 45-75) - COLON CA SCREENING 1956 COLON MONITORING 1956 COLONOSCOPY - COLON CA SCREENING 1956 CT COLONOGRAPHY - COLON CA SCREENING 1955 Colorectal Cancer Screening 1956 FIT - COLON CA SCREENING 1956 FLEX SIG - COLON CA SCREENING 1956 DTAP/TDAP/TD VACCINES (1 - Tdap) 11/07/1975 PNEUMOCOCCAL VACCINE 50+ (1 of 1 - PCV) 2006 ZOSTER VACCINE (1 of 2) 2006 COVID-19 VACCINE (2 - 2023- season) 2023 10/03/2021 DEPRESSION SCREENING 04/29/2024 MEDICARE AWV CALENDAR YEAR 2024 INFLUENZA VACCINE (Season Ended) 2024 02/08/2021, 01/20/2020, 02/11/2019, Additional history exists MAMMOGRAM 08/06/2025 08/07/2023 LIPID TESTING 09/18/2028 09/19/2023 Respiratory Syncytial Virus (RSV) Vaccine Pt: or over 60 yrs (1 - 1-dose 75+ series) 11/07/2031 HEPATITIS C SCREENING Completed 01/11/2022 HEPATITIS B VACCINE Aged Out No longe r eligible based on patient's age to complete this topic HIB VACCINE Aged Out No longer eligi ble based on patient's age to complete this topic HPV VACCINE Aged Out No longer eligi ble based on patient's age to complete this topic MENINGOCOCCAL (Group B) VACCINE SHARED DECISION-MAKING Aged Out No longer eligible based on patient's age to complete this topic MENINGOCOCCAL GROUPS A/C/Y/W VACCINE Aged Out No longer eligible based on patient's age to complete this topic Insurance AETNA MEDICARE ADV Care Teams Entertainment Production Professional Relationship Specialty Start Date End Date Arnaldo Mohan DO [facility] [place] [address] PCP - General Family Medicine Geriatric Medicine 12/12/23
--- OUTSIDE RECORDS SUMMARY | 2024-08-19 11:04 | XMS_ITS | Clinical Summary ---
Author Organization [facility] Address [address] Rdzn: Epic Prelude ADT [place] [address] Care Team Providers Care Pharmacy Intake Technician Name Role Phone Arnaldo Mohan DO Primary Care Provider + Active Problems Patient Care Coordination No te Formatting of this note migh t be different from the original. 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 Gender Identity Not on file Sexual Orientation Not on file Plan of Treatment Health Maintenance Due Date Last Done Comments DTAP/TDAP/TD VACCINES (1 - Tdap) 11/07/1975 FIT-DNA Q 3 years 2001 FIT/FOBT Q 1 year 2001 Flex Sig/CT Colonography Q 5 years 2001 PNEUMOCOCCAL VACCINE 50+ YEA RS (1 of 1 - PCV) 2006 ZOSTER VACCINE (1 of 2) 2006 BREAST CANCER SCREENING 03/28/2021 03/28/20 20, 03/28/2020, 06/23/2018, Additional history exists INFLUENZA VACCINE (#1) 2023 OSTEOPOROSIS SCREENING 01/09/2024 01/08/2019, 2015 COLORECTAL SCREENING 06/01/2029 06/01/2019 Colorectal Cancer Screening 06/01/2029 RSV VACCINE (60+ or ) (1 - 1-dose 75+ series) 11/07/2031 Care Teams Pharmacy Intake Technician Relationship Specialty Start Date End Date Arnaldo Mohan DO [facility] [place] [address] PCP - General Family Practice 07/26/20
--- OUTSIDE RECORDS SUMMARY | 2024-08-19 11:04 | XMS_ITS | Encounter Summary ---
Author Organization [facility] Address [address] [place] [address] Phone Care Team Providers Care Mental Health Program Manager Name Role Phone ElioangeliquevincentdiannArnaldo Maliha RIOS Primary Care Provider + Encounter Details Date Type Department Care Team (Late st Contact Info) Description 09/14/2020 Transcribe Orders [facility] Admitting [address] [place] [address] Karina Benitez APRN, COURT SUPERVISOR [address] [place] [address] Routine general medical examination at health care facility (Adult) (Primary Dx) Social History Tobacco Use Types Packs/Day Years Used Date Smoking Tobacco: Never Smokeless Tobacco: Never Alcohol Use Standard Drinks/Week Comments No 0 (1 standard drink = 0.6 oz pur e alcohol) Comments No Sex and Gender Information Value Date Recorded Sex Assigned at Not on file Legal Sex Female 9:23 PM CDT Gender Identity Not on file Sexual Orientation Not on file COVID-19 Exposure Response Date Recorded In the last month, have you been in contact with someone who was confirmed or suspected to have Coronavirus / COVID-19? No / Unsure 09/14/2020 8:15 AM CDT documented as of this encounter Plan of Treatment Not on file documented as of this encounter Results * (ABNORMAL) URINALYSIS REFLEX IF INDICATED BY ABNORMAL RESULTS (09/14/2020 8:36 AM CDT) SPECIFIC GRAVITY 1.010 1.003 - 1.030 09/14/2020 9:50 AM CDT [facility] URINE PH 8.0 5.0 - 9.0 09/14/2020 9:50 AM CDT [facility] WBC ESTERASE Negative Negative 09/14/2020 9:50 AM CDT [facility] NITRITE Negative Negative 09/14/2020 9:50 AM CDT [facility] PROTEIN, RANDOM URINE Negative Negative 09/14/2020 9:50 AM CDT [facility] URINE GLUCOSE, QUAL Negative Negative 09/14/2020 9:50 AM CDT [facility] URINE KETONES Negative Negative 09/14/2020 9:50 AM CDT [facility] UROBILINOGEN Normal Normal mg/dL 09/14/2020 9:50 AM CDT [facility] URINE BILIRUBIN Negative Negative 9:50 AM CDT [facility] URINE BLOOD 10 /uL(A) Negative darshan/ul 09/14/2020 9:50 AM CDT [facility] URINALYSIS COLOR Yellow 09/15/19 9:50 AM CDT [facility] URINALYSIS CLARITY Clear 09/14/2020 9:50 AM CDT [facility] WBC (Urine) 0-5 Negative, 0-5 /hpf 09/14/2020 9:50 AM CDT [facility] URINE RBC'S 3-5(A) Negative, 0-2 /hpf 09/14/2020 9:50 AM CDT [facility] EPITHELIAL CELLS Moderate amount /lpf 09/14/2020 9:50 AM CDT [facility] BACTERIA, URINE Few(A) Negative /hpf 09/14/2020 9:50 AM CDT [facility] Urine URINE SPECIMEN COLLECTION, CLEAN CATCH / Unknown Non-Phlebotomy Collection / Unknown 09/14/2020 8:36 AM CDT 09/14/2020 9:19 AM CDT us Karina Romanley PUBLIC RELATIONS SPECIALIST, COURT SUPERVISOR URINE ORDERABLES Final R esult [facility] [address] [place] [address] * (ABNORMAL) CMP (COMPREHENSIVE METABOLIC PANEL) (09/14/2020 8:31 AM CDT) SODIUM 139 136 - 144 mmol/L 09/14/2020 10:01 AM CDT [facility] POTASSIUM 4.6 3.5 - 5.1 mmol/L 09/14/2020 10:01 AM CDT [facility] CHLORIDE 104 100 - 110 mmol/L 09/14/2020 10:01 AM CDT [facility] CO2, VENOUS 26 22 - 32 mmol/L 09/14/2020 10:01 AM CDT [facility] ANION GAP 13.6 8.0 - 20.0 mmol/L 09/14/2020 10:01 AM CDT [facility] GLUCOSE 92 70 - 99 mg/dL 09/14/2020 10:01 AM CDT [facility] BUN 14 8 - 23 mg/dL 09/14/2020 10:01 AM CDT [facility] CREATININE, BLOOD 0.65 0.60 - 1.10 mg/dL 09/14/2020 10:01 AM CDT [facility] BUN/CREATININE RATIO 22(H) 12 - 20 ratio 09/14/2020 10:01 AM CDT [facility] TOTAL PROTEIN 6.8 6.0 - 8.3 g/dL 09/14/2020 10:01 AM CDT [facility] ALBUMIN 4.2 3.5 - 5.2 g/dL 09/14/2020 10:01 AM CDT [facility] Comment: The colormetric methods used for the determination of Albumin may lead to falsely elevated test results in patients suffering from renal failure or insufficiency due to interference with other proteins. A/G RATIO 1.6 1.0 - 2.0 09/14/2020 10:01 AM CDT [facility] CALCIUM 9.3 8.9 - 10.3 mg/dL 09/14/2020 10:01 AM CDT [facility] T BILI <0.3 <=1.2 mg/dL 09/14/2020 10:01 AM CDT [facility] SGOT (AST) 20 <=32 U/L 09/14/2020 10:01 AM CDT [facility] SGPT (ALT) 14 <=41 U/L 09/14/2020 10:01 AM CDT [facility] ALKALINE PHOSPHATASE 115(H) 35 - 105 U/L 09/14/2020 10:01 AM CDT [facility] GFR, EST. NONAFRICAN >60 >=60 09/14/2020 10:01 AM CDT [facility] GFR, EST. >60 >=60 021 10:01 AM CDT [facility] Comment: Creatinine Clearance is the preferred criteria for selecting drug dose adjustments in renally impaired patients. The GFR is provided as additional pertinent clinical information. GFR is reported in mL/min/1.73 sq m. IS THE PATIENT REQUIRED TO BE FASTING? No 09/14/2020 10:01 AM CDT [facility] Blood Venipuncture / Unknown 09/14/2020 8:31 AM CDT 09/14/2020 9:22 AM CDT us Karina Benitez APRN, [place] CHEMISTRY ORDERABLES Fin al Result [facility] [address] [place] [address] * THYROID STIMULATING HORMONE (TSH) (09/14/2020 8:31 AM CDT) TSH 0.451 0.270 - 4.200 mIU/L 09/14/2020 10:01 AM CDT [facility] Blood Venipuncture / Unknown 09/14/2020 8:31 AM CDT 09/14/2020 9:22 AM CDT Karina Benitez APRN, COURT SUPERVISOR CHEMISTRY ORDERABLES Fin al Result Performing Organization Address City/[facility] Co de Phone Number [facility] [address] [facility] [place] [address] * (ABNORMAL) LIPID PANEL (09/14/2020 8:31 AM CDT) CHOLESTEROL 201(H) <=200 mg/dL 09/14/2020 10:01 AM CDT [facility] TRIGLYCERIDES 162(H) <150 mg/dL 09/14/2020 10:01 AM CDT [facility] HDL CHOLESTEROL 50.9 >40 mg/dL 10:01 AM CDT [facility] LDL 118 5 - 130 mg/dL 09/14/2020 10:01 AM CDT [facility] VLDL 32 5 - 55 mg/dL 09/14/2020 10:01 AM CDT [facility] CHOL/HDL RATIO 3.9 0.0 - 4.4 09/14/2020 10:01 AM CDT [facility] NON-HDL CHOLESTEROL 150.1(H) <130 mg/dL 09/14/2020 10:01 AM CDT [facility] IS THE PATIENT REQUIRED TO BE FASTING? No 09/14/2020 10:01 AM CDT [facility] Blood Venipuncture / Unknown 09/14/2020 8:31 AM CDT 09/14/2020 9:22 AM CDT Karina Benitez APRN, COURT SUPERVISOR CHEMISTRY ORDERABLES Fin al Result Performing Organization Address [facility]/ZIP Co de Phone Number [facility] [address] [place] [address] documented in this encounter Visit Diagnoses Diagnosis Routine general medical examination at a health care facility- Primary documented in this encounter Additional Health Concerns Infection Onset Date Last Indicated Resolved Time C. difficile Rule-Out 09/21/2020 09/21/20202020 12:26 PM CDT documented as of this encounter Care Teams Mental Health Program Manager Relationship Specialty Start Date End Date Arnaldo Mohan DO [address] [place] [address] PCP - General Family Medicine 12/24/18 documented as of this encounter
--- OUTSIDE RECORDS SUMMARY | 2024-08-19 11:04 | XMS_ITS | Continuity of Care Document ---
Author Organization [facility] Address [address] [place] [address] Phone Care Team Providers Care Rope Cutter Name Role Phone Emmanuel Lock MD Unavailable Unavailable Medications Medication Instructions Dosage Effective Dates (start - stop) Status Comments Lodine 400 mg Tab Take 1 tablet by rocky th every 12 hours after meals as needed. - Active Procedures Procedure Date Office/outpatient visit,[facility] 2010 X-ray exam of shoulder, complete 2010 Advance Directives Directive Yes / No Effective Date File Name No Information Encounters Encounter Description Practice Location Reason(s) For Visit Diagnoses Date Provider Providers Copied on Encounter Office/outpat ient visit,[facility], [address], [id number], [place] tel:[phone] [facility] ROT[facility] CUFF SYND NOSJOINT PAIN-SHLDE R [address] Ashvin Benitez. [address] [facility] [facility] [address], [place], [place], [id number] , [place]. tel: [phone] Referring Provider: Sujit Valladares, [address] [place] [address], [address]. tel:[phone] Family History Family Member Type Diagnosis Age At Onset No Information Payers Payer name Insurance type Covered alliance party ID Authoriza tion(s) [facility] CI [id number] [facility] CI [id number] Social History Type Description Quantity Date Captured Comments Sex Female Smoking Status No Information Chief Complaint And Reason For Visit No Information Reason For Referral Reason For Referral No Information History Of Present Illness Encounter Date Complaint History Of Prese nt Illness No Information Functional Status Date Functional Assessmen t No Information Instructions Date Instruction Additional Infor mation No Information Assessments Type Assessment Date No Information Patient Care Teams Name Effective Dates (start - stop) Status Members No Information
== END 2024-08-19 09:48 | disposition home or self-care (01) ==
LOC: CHSIMG 09:50
PROVIDERS: PCP Student in an Organized Health Care Education/Training Program; Visit Provider Student in an Organized Health Care Education/Training Program
DX: Z12.31 Encounter for screening mammogram for malignant neoplasm of breast (principal)
CPT/HCPCS: 77063; 77067

== ENCOUNTER 2025-04-16 10:16 | Outpatient (CLI) | payer MEDICARE, SELFPAY ==
--- NOTE | ~2025-04-16 | DEXA_ITS ---
Bone Density Report Name: SALMA ROWAN Age: 69 Sex: Female Ethnicity: White Date of : 1955 Indication: postmenopausal; screening for osteoporosis; height loss; cancer; hysterectomy; rheumatoid arthritis; Referring Provider: AISSATOU GAGNON Study: Bone densitometry was performed. Exam Date: April 16, 2025 Accession number: [id number] Bone Density: Region BMD T-score Z-score Classification AP Spine(L1-L4) 0.819 -2.1 -0.1 Osteopenia Femoral Neck (Left) 0.849 0.0 1.7 Normal Total Hip (Left) 1.034 0.8 2.2 Normal Femoral Neck (Right) 0.884 0.3 2.0 Normal Total Hip (Right) 1.087 1.2 2.6 Normal Femoral Neck Mean 0.867 0.2 1.9 Normal Total Hip Mean 1.060 1.0 2.4 Normal World Health Organization criteria for BMD impression classify patients as: Normal (T-score at or above -1.0), Osteopenia (T-score between -1.0 and -2.5), or Osteoporosis (T-score at or below -2.5). 10-year Fracture Risk(1): Major Osteoporotic Fracture 9.1% Hip Fracture 0.5% Reported Risk Factors: [place] (), Neck BMD=0.849, BMI=28.0, rheumatoid arthritis (1) FRAX(R) Version 3.08. Fracture probability calculated for an untreated patient. Fracture probability may be lower if the patient has received treatment. Clinical Information Provided by Patient: Has rheumatoid arthritis Has used the following medications: HRT (i.e. estrogen/hormone therapy), Vitamin D, Calcium Has the following medical conditions: Cancer, Hysterectomy Patient maximum height was 64 Menopause Age: 55 Drinks caffeinated beverages Onset of menses at age 16 Number of children 1 Impression: The patient has low bone mass, based on the Total Spine T-score. Discussion: BONE DENSITY IS LOW AT ONE OR MORE SKELETAL SITES. This patient's lowest T-score is low at one or more skeletal sites. It meets the World Health Organization's (WHO) criteria for ?low bone mass? (T-score between -1.0 and -2.5). The patient's 10-year risk of fracture as calculated by FRAX is less than the threshold where pharmacological therapy is recommended by the National Osteoporosis Foundation (NOF). However, all treatment decisions require clinical judgment and consideration of individual patient factors, including patient preferences, comorbidities, previous drug use, risk factors not captured in the FRAX model (e.g., frailty, falls, vitamin D deficiency, increased bone turnover, interval significant decline in bone density) and possible under or overestimation of fracture risk by FRAX. The patient should follow a healthful lifestyle (good nutrition with adequate calcium and vitamin D, and appropriate weight-bearing exercise). Follow-Up: Consider repeating this study in 2 to 3 years to reassess this patient's status, or sooner if there is some new clinical indication. Reported by: GABRIELLA on 04/16/2025 10:37:00 AM. Reviewed, dictated and finalized at location A.
--- OUTSIDE RECORDS SUMMARY | 2025-04-16 10:49 | XMS_ITS | Clinical Summary ---
Author Organization [facility] Address [address] [place] [address] Care Team Providers Care Manager Of Transportation Name Role Phone ElioangeliquevincentdiannArnaldo Maliha RIOS Primary Care Provider + Rome Sheridan MD Unavailable [phone] Allergies No known active allergies Medications Cholecalciferol (VITAMIN D3) 2000 units Tab Take 2 capsules by mouth daily. Active MYRBETRIQ 50 MG 24 hr tablet Take 1 tablet (50 mg total) by mouth daily. Active cetirizine (ZYRTEC) 10 MG tablet Take 1 tablet (10 mg total) by mouth daily. Active Calcium Carbonate-Vit D-Min (CALCIUM 1200) 9068-8442 MG-UNIT Chew Tab 04/29/19 25 Active pantoprazole EC (PROTONIX) 40 MG tabletIndicatio ns:Gastroesopha geal reflux disease, unspecified whether esophagitis present TAKE 1 TABLET BY MOUTH EVERY DAY 90 tablet 03/29/20 25 Active pantoprazole EC (PROTONIX) 40 MG tabletIndicatio ns:Gastroesopha geal reflux disease, unspecified whether esophagitis present Take 1 tablet (40 mg total) by mouth daily. 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 Not on file Not on file Not o n file Last Filed Vital Signs Vital Sign Reading Time Taken Comments Blood Pressure 122/78 01/08/2025 10:05 AM CDT Pulse 78 01/08/2025 10:05 AM CDT Temperature 36.5 C (97.7 F) 01/08/2025 10:05 AM CDT Respiratory Rate 16 01/08/2025 10:0 5 AM CDT Oxygen Saturation 98% 01/08/2025 10: 05 AM CDT Inhaled Oxygen Concentration - - Weight 70.7 kg (155 lb 14.4 oz) 025 10:05 AM CDT Height 160 cm (5' 3) 01/08/2025 10:05 AM CDT Body Mass Index 27.62 01/08/2025 10:05 AM CDT Plan of Treatment Health Maintenance Due Date Last Done Comments Annual Medicare Wellness Visit 12/30/2022 12/29/2021 Influenza Adult (#1) 2025 01/30/2024, 01/30/2023, 02/14/2022, Additional history exists COVID-19 Vaccine ( season) 2026 01/30/2024, 01/30/2023, 02/07/2022, Additional history exists Postponed from 12/28/2024 (Future Appointment) Colorectal Cancer Screening Colonoscopy (10 Years) 06/01/2026 06/01/2019 Mammogram Screening 08/19/2026 08/19/2024, 08/07/2023, 07/21/2022, Additional history exists DTaP, Tdap and Td Vaccines (2 - Td or Tdap) 01/19/2030 01/20/2020, 04/29/2007 RSV Immunization or 60+ Years (1 - 1-dose 75+ series) 11/07/2031 Zoster Vaccines Completed 07/01/2018, 01/28/2018 Pneumococcal Vaccine: 50+ Years Completed 11/26/2021, 04/29/2007, 04/29/2007 Hepatitis C Completed 01/11/2022, 12/24/2018 Dexa Scan (General) Completed 04/08/2023, 04/03/2021, 01/08/2019 PHQ-2 (Physician [place]) Completed 12/16/2024 Hepatitis A Vaccines Aged Out No long er eligible based on patient's age to complete this topic Meningococcal B Vaccine Aged Out No l onger eligible based on patient's age to complete this topic Meningococcal Vaccine Aged Out No fco kim eligible based on patient's age to complete this topic RSV Immunizations Under 20 Months Aged Out No longer eligible based on patient's age to complete this topic Medical Devices Implanted Type Area Proposal Manager Device Identifier Shelf Expiration Date Model / Serial / Lot Iol [employer] - [id number] Implanted:Qty: 1 on 04/06/2019 by Hollis Kumar MD at [facility] [employer] 10/09/2022 [id number] / [id number] / Procedures Procedure Name Priority Date/Time Associated Diagnosis Comments MAMMOGRAM GENERIC (SCAN ORDER) 08/19/2024 BONE DENSITY GENERIC (SCAN ORDER) 04/08/2023 HEPATITIS C ANTIBODY Routine 01/11/2022 7:28 AM CDT Routine general medical examination at a health care facility Need for hepatitis C screening test COLONOSCOPY GENERIC (SCAN ORDER) Routine 06/01/2019 from Last 3 Months or Most Recently Relevant to Health Maintenance Results * MAMMOGRAM GENERIC (SCAN ORDER) (08/19/2024) Anatomical Region Laterality Modality Other 08/19/2024 [employer] Scanned SCANNING Final Resu lt * BONE DENSITY GENERIC (04/08/2023) Anatomical Region Laterality Modality Other 04/08/2023 [employer] Scanned SCANNING Final Resu lt * HEPATITIS C AB ([facility] ONLY) (01/11/2022 7:28 AM CDT) HEPATITIS C AB NON-REACTI VE NON-REACT ZAFAR 01/11/2022 11:08 PM CDT [facility] Comment: ANTIBODIES TO HCV NOT DETECTED. DOES NOT EXCLUDE THE POSSIBILITY OF EXPOSURE TO HCV. 01/11/2022 7:28 AM CDT us Arnaldo Mohan DO LABORATORY Final Re sult [facility] [address] [place] [address], [id number] * COLONOSCOPY (06/01/2019) us Documents Scanned SCANNING Edited Result - Final [facility] ONBASE from Last 3 Months or Most Recently Relevant to Health Maintenance Insurance [employer] MEDICARE Advance Directives Documents on File Type Date Recorded Patient Sheet Rock Applicator Expl anation Power of Messenger Office 01/11/2022 7:25 AM power of senior financial consultant Care Teams Manager Of Transportation Relationship Specialty Start Date End Date Arnaldo Mohan DO [address] [place] [address] PCP - General FAMILY PRACTICE 10/24/18 Rome Sheridan MD [address] [facility] [address] [place] [address] [place] Central Office Equipment Installer CARDIOVASCULAR DISEASE 06/18/19
--- OUTSIDE RECORDS SUMMARY | 2025-04-16 10:49 | XMS_ITS | Encounter Summary ---
Author Organization [facility] Address [address] [place] [address] Care Team Providers Care Tax Expert Name Role Phone Arnaldo Mohan DO Primary Care Provider + Rome Sheridan MD Unavailable [phone] Encounter Details Date Type Department Care Team (Late st Contact Info) Description 01/01/2019 Standardized Safetyt Message Enc [facility] Family & Internal Medicine [facility] [address] [place] [address] Arnaldo Mohan DO [facility] [place] [address] RE: Test Results Social History [...] COVID-19 Rule Out 03/30/2021 03/30/202103/30/2021 9:27 AM MICROBIOLOGICAL LABORATORY TECHNICIAN Assessment Noted Time PHQ-9 Depression Total Score: 6 12/05/19 10:51 AM CDT documented as of this encounter Care Teams Tax Expert Relationship Specialty Start Date End Date Arnaldo Mohan DO [address] [place] [address] PCP - General FAMILY PRACTICE 10/24/18 Rome Sheridan MD [address] [facility] [address] [place] [address] [place] Shuttle Buggy Operator CARDIOVASCULAR DISEASE 06/18/19 documented as of this encounter
--- OUTSIDE RECORDS SUMMARY | 2025-04-16 10:49 | XMS_ITS | Clinical Summary ---
Author Organization [facility] Address [address] 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
--- OUTSIDE RECORDS SUMMARY | 2025-04-16 10:50 | XMS_ITS | Encounter Summary ---
Author Organization [facility] Address [address] [place] [address] Phone Care Team Providers Care Personnel Generalist Manager Name Role Phone Arnaldo Mohan DO Primary Care Provider + Encounter Details Date Type Department Care Team (Late st Contact Info) Description 09/14/2020 Transcribe Orders [facility] Admitting [address] [place] [address] Karina Benitez, THANH, DINING ROOM ATTENDANT CAFETERIA [address] [place] [address] Routine general medical examination at health care [...] - 1.030 09/14/2020 9:50 AM CDT [facility] URINE PH 8.0 5.0 - 9.0 09/14/2020 9:50 AM CDT [facility] WBC ESTERASE Negative Negative 09/14/2020 9:50 AM CDT [facility] NITRITE Negative Negative 09/14/2020 9:50 AM CDT [facility] PROTEIN, RANDOM URINE Negative Negative 09/14/2020 9:50 AM CDT [facility] URINE GLUCOSE, QUAL Negative Negative 09/14/2020 9:50 AM CDT [facility] URINE KETONES Negative Negative 09/14/2020 9:50 AM CDT [facility] UROBILINOGEN Normal Normal mg/dL 09/14/2020 9:50 AM CDT [facility] URINE BILIRUBIN Negative Negative 9:50 AM CDT [facility] URINE BLOOD 10 /uL(A) Negative darshan/ul 09/14/2020 9:50 AM CDT [facility] URINALYSIS COLOR Yellow 09/15/19 9:50 AM CDT [facility] URINALYSIS CLARITY Clear 09/14/2020 9:50 AM CDT [facility] WBC (Urine) 0-5 Negative, 0-5 /hpf 09/14/2020 9:50 AM CDT [facility] URINE RBC'S 3-5(A) Negative, 0-2 /hpf 09/14/2020 9:50 AM CDT [facility] EPITHELIAL CELLS Moderate amount /lpf 09/14/2020 9:50 AM CDT [facility] BACTERIA, URINE Few(A) Negative /hpf 09/14/2020 9:50 AM CDT [facility] Urine URINE SPECIMEN COLLECTION, CLEAN CATCH / Unknown Non-Phlebotomy Collection / Unknown 09/14/2020 8:36 AM CDT 09/14/2020 9:19 AM CDT us Karina Eli BRIDGE OPERATOR SLIP, DINING ROOM ATTENDANT CAFETERIA URINE ORDERABLES Final R esult [facility] [address] [place] [address] * (ABNORMAL) CMP (COMPREHENSIVE METABOLIC PANEL) (09/14/2020 8:31 AM CDT) SODIUM 139 136 - 144 mmol/L 09/14/2020 10:01 AM CDT [facility] POTASSIUM 4.6 3.5 - 5.1 mmol/L 09/14/2020 10:01 AM CDT [facility] CHLORIDE 104 100 - 110 mmol/L 09/14/2020 10:01 AM CDT [facility] CO2, VENOUS 26 22 - 32 mmol/L 09/14/2020 10:01 AM CDT [facility] ANION GAP 13.6 8.0 - 20.0 mmol/L 09/14/2020 10:01 AM CDT [facility] GLUCOSE 92 70 - 99 mg/dL 09/14/2020 10:01 AM CDT [facility] BUN 14 8 - 23 mg/dL 09/14/2020 10:01 AM CDT [facility] CREATININE, BLOOD 0.65 0.60 - 1.10 mg/dL 09/14/2020 10:01 AM CDT [facility] BUN/CREATININE RATIO 22(H) 12 - 20 ratio 09/14/2020 10:01 AM CDT [facility] TOTAL PROTEIN 6.8 6.0 - 8.3 g/dL 09/14/2020 10:01 AM CDT [facility] ALBUMIN 4.2 3.5 - 5.2 g/dL 09/14/2020 10:01 AM CDT [facility] Comment: The colormetric methods used for the determination of Albumin may lead to falsely elevated test results in patients suffering from renal failure or insufficiency due to interference with other proteins. A/G RATIO 1.6 1.0 - 2.0 09/14/2020 10:01 AM CDT [facility] CALCIUM 9.3 8.9 - 10.3 mg/dL 09/14/2020 10:01 AM CDT [facility] T BILI <0.3 <=1.2 mg/dL 09/14/2020 10:01 AM CDT [facility] SGOT (AST) 20 <=32 U/L 09/14/2020 10:01 AM CDT [facility] SGPT (ALT) 14 <=41 U/L 09/14/2020 10:01 AM CDT [facility] ALKALINE PHOSPHATASE 115(H) 35 - 105 U/L 09/14/2020 10:01 AM CDT [facility] GFR, EST. NONAFRICAN >60 >=60 09/14/2020 10:01 AM CDT [facility] GFR, EST. >60 >=60 021 10:01 AM CDT [facility] Comment: Creatinine Clearance is the preferred criteria for selecting drug dose adjustments in renally impaired patients. The GFR is provided as additional pertinent clinical information. GFR is reported in mL/min/1.73 sq m. IS THE PATIENT REQUIRED TO BE FASTING? No 09/14/2020 10:01 AM CDT [facility] Blood Venipuncture / Unknown 09/14/2020 8:31 AM CDT 09/14/2020 9:22 AM CDT Karina Benitez APRN, BAYLEE CHEMISTRY ORDERABLES Fin al Result [facility] [address] [place] [address] * THYROID STIMULATING HORMONE (TSH) (09/14/2020 8:31 AM CDT) TSH 0.451 0.270 - 4.200 mIU/L 09/14/2020 10:01 AM CDT [facility] Blood Venipuncture / Unknown 09/14/2020 8:31 AM CDT 09/14/2020 9:22 AM CDT Karina Benitez APRN, DINING ROOM ATTENDANT CAFETERIA CHEMISTRY ORDERABLES Fin al Result Performing Organization Address [facility] Co de Phone Number [facility] [address] [facility] [place] [address] * (ABNORMAL) LIPID PANEL (09/14/2020 8:31 AM CDT) CHOLESTEROL 201(H) <=200 mg/dL 09/14/2020 10:01 AM CDT [facility] TRIGLYCERIDES 162(H) <150 mg/dL 09/14/2020 10:01 AM CDT [facility] HDL CHOLESTEROL 50.9 >40 mg/dL 10:01 AM CDT [facility] LDL 118 5 - 130 mg/dL 09/14/2020 10:01 AM CDT [facility] VLDL 32 5 - 55 mg/dL 09/14/2020 10:01 AM CDT [facility] CHOL/HDL RATIO 3.9 0.0 - 4.4 09/14/2020 10:01 AM CDT [facility] NON-HDL CHOLESTEROL 150.1(H) <130 mg/dL 09/14/2020 10:01 AM CDT [facility] IS THE PATIENT REQUIRED TO BE FASTING? No 09/14/2020 10:01 AM CDT [facility] Blood Venipuncture / Unknown 09/14/2020 8:31 AM CDT 09/14/2020 9:22 AM CDT Karina Benitez APRN, DINING ROOM ATTENDANT CAFETERIA CHEMISTRY ORDERABLES Fin al Result Performing Organization Address City/[facility]/ZIP Co de Phone Number [facility] [address] [place] [address] documented in this encounter Visit Diagnoses Diagnosis Routine general medical examination at a health care facility- Primary documented in this encounter Additional Health Concerns Infection Onset Date Last Indicated Resolved Time C. difficile Rule-Out 09/21/2020 09/21/20202020 12:26 PM CDT documented as of this encounter Care Teams Personnel Generalist Manager Relationship Specialty Start Date End Date Arnaldo Mohan DO [address] [place] [phone] PCP - General Family Medicine 12/24/18 documented as of this encounter
--- OUTSIDE RECORDS SUMMARY | 2025-04-16 10:50 | XMS_ITS | Clinical Summary ---
Author Organization [facility] Address [address] [place] [address] Care Team Providers Care Economic Adviser Name Role Phone Arnaldo Mohan Primary Care Provider + Source Comments [facility],non-owned Affiliates and Associated Physician Practices is amultiple site organization consisting of ambulatory clinics and hospital sitesin [place], [place], [place] and [place]. This disclosure is being madepursuant to the Care Everywhere program and may not contain all information available regarding this patient. 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
--- OUTSIDE RECORDS SUMMARY | 2025-04-16 10:50 | XMS_ITS | Clinical Summary ---
Author Organization [facility] Address [address] [place] [address] Phone Care Team Providers Care Sign Painter Helper Name Role Phone Arnaldo Mohan Primary Care [...] Active Additional Information Patient not taking.Reported on 03/22/2025 albuterol (ProAir HFA) 108 (90 Base) MCG/ACT Aerosol SolutionIndicat ions:Cough take 2 Puffs by inhalation every 4 hours as needed for Wheezing or Cough. 1 Inhaler 1 Active Additional Information Patient not taking.Reported on 03/22/2025 Myrbetriq 50 MG TABLET SR 24 HR Take 1 Tablet by mouth daily. 3 Active Cetirizine HCl (ZYRTEC PO) Take by mouth. Act jase Calcium Carbonate (CALCIUM 500 PO) Take by mouth. Activ e Active Problems Problem Noted Date Diagnosed Date Kidney stones Encounters Date Type Department Care Team Description 03/22/2025 10:35 AM BEHAVIORIST Urgent Care Visit [facility] [place] [address] [place] [phone] Annamaria Lomax, THANH, BAYLEE Viral URI (Primary Dx); Sore throat Discharge Disposition: Discharged to home or Selfcare 03/22/2025 Travel from Last 3 Months Immunizations Immunization Administration Dates Next Due Influenza Vaccine greater than 3 yrs 03/02/2015 Influenza Vaccine, MDCK,quad rivalent, pres free 02/11/2019,02/12/2017 Influenza Vaccine, Quadrivalent, PF 01/27,01/20/2020,02/04/2018,03/05 Influenza Vaccine,unspecifie d Formulation 03/02/2015 Influenza, High-dose, Quadrivalent 01/30/2023, Influenza, high-dose, trivalent, PF 01/19/2025,1 Influenza,Split Virus,Trivalent,Injectable,PF 03/01/2015 Pneumococcal Vaccine Adult - 23 Valent 8 Pneumococcal conjugate PCV20 , polysaccharide [id number] conjugate, adjuvant, PF 11/26/2021 TD VACCINE 04/29/2007 TDAP Vaccine 01/20/2020 Td Vaccine (preservative free) 04/29/2007 Zoster Vaccine Recombinant 07/01/2018,01/28/2018 Family History Medical History Relation Name Comments [...] Sign Reading Time Taken Comments Blood Pressure 140/70 03/22/2025 10:45 AM BEHAVIORIST Pulse 85 03/22/2025 10:45 AM BEHAVIORIST Temperature 37 C (98.6 F) 03/22/2025 10:45 AM BEHAVIORIST Respiratory Rate 16 03/22/2025 10:45 AM BEHAVIORIST Oxygen Saturation 98% 03/22/2025 10:45 AM BEHAVIORIST Inhaled Oxygen Concentration - - Weight 72.6 kg (160 lb) 01/13/2023 3:42 PM CDT Height 162.6 cm (5' 4) 05/15/2020 2:30 PM BEHAVIORIST Body Mass Index 27.46 05/15/2020 2:30 PM BEHAVIORIST Plan of Treatment Health Maintenance Due Date Last Done Comments DEXA Bone Density 1955 Mammogram 1956 Cologuard 2001 Immunochemical Fecal Occult Blood 2001 Medicare Initial AWV [id number] 04/29/2024 SARS-COV-2 Immunization ( season) 2025 01/19/2025, 01/30/2024, 01/30/2023, Additional history exists Colonoscopy 06/01/2026 06/01/2019 Colorectal Cancer Screening 06/01/2026 Td Immunization Every 10 Years (Adults With 1 Tdap) 01/19/2030 01/20/2020, 04/29/2007, 04/29/2007, Additional history exists Respiratory Syncytial Virus (RSV) Immunization (Adult) (1 - 1-dose 75+ series) 11/07/2031 Zoster Immunization Completed 07/01/2018, 8 DTaP/Tdap/Td Immunization Discontinued 2019, 04/29/2007, 04/29/2007, Additional history exists TdaP Immunization Discontinued 01/20/2020 Pneumococcal Immunization (50+ years) Completed 11/26/2021, 04/29/2007 Pneumococcal Immunization Combined Discontinued 11/26/2021, 04/29/2007 Hepatitis C Virus (HCV) Screening Completed 01/11/2022, 12/24/2018 Influenza Immunization Completed 5, 01/30/2024, 01/30/2023, Additional history exists Hepatitis B Immunization Aged Out No longer eligible based on patient's age to complete this topic Human Papillomavirus (HPV) Immunization (No Doses Required) Completed Meningococcal Immunization (ACWY) Aged Out No longer eligible based on patient's age to complete this topic Rotavirus Immunization Aged Out No lo nger eligible based on patient's age to complete this topic Procedures Procedure Name Priority Date/Time Associated Diagnosis Comments POC GROUP A STREP BY MOLECULAR Routine 03/22/2025 10:44 AM BEHAVIORIST Sore throat HEPATITIS C ANTIBODY Routine 12/24/2018 8:53 AM CDT Need for hepatitis C screening test from Last 3 Months or Most Recently Relevant to Health Maintenance Results * POC GROUP A STREP BY MOLECULAR (03/22/2025 10:44 AM BEHAVIORIST) STREP A DNA Negative Negative, Invalid PROCEDURE CONTROL Valid Swab 03/22/2025 10:4 4 AM BEHAVIORIST us Annamaria Lomax SUPERVISOR SOAKERS, GRAIN GRADER POINT OF CARE TESTI NG (MANUAL) Final Result * HEPATITIS C ANTIBODY (12/24/2018 8:53 AM CDT) hepatitis C antibody 0.07 <1 S/CO 12/24/2018 10:00 PM CDT [facility] Comment: Signal/Cutoff ratio < 0.79 is Nondetected Signal/Cutoff ratio 0.80-0.99 is Grayzone Signal/Cutoff ratio > 0.99 is Detected Supplemental assays are recommended if signal/cutoff ratio is >/=1.00. Signal/cutoff ratio result >/= 5.00 is 97% predictive of positivity for recombinant immunoblot assay (RIBA) and will be reported to the [place] Department of Public Health as required. Blood specimen (specimen) Butterfly Puncture / Unknown 12/24/2018 8:53 AM CDT 12/24/2018 10:11 AM CDT us Arnaldo Mohan DO CHEMISTRY ORDERABLES Fin al Result [facility] [address] [place] [address], [place] from Last 3 Months or Most Recently Relevant to Health Maintenance Insurance MEDICARE C AETNA Care Teams Sign Painter Helper Relationship Specialty Start Date End Date Arnaldo Mohan DO [address] [place] [phone] PCP - General Family Medicine 12/24/18
--- OUTSIDE RECORDS SUMMARY | 2025-04-16 10:50 | XMS_ITS | Encounter Summary ---
Author Organization [facility] Address [address] [facility] [place] [address] Care Team Providers Care Lead Programmer Name Role Phone Arnaldo Mohan DO Primary Care Provider + Encounter Details Date Type Department Care Team (Late st Contact Info) Description 05/30/2023 Lab Requisition [facility] - DermPath Lab [address] [place] [phone] Manuel Monson MD [facility] [address] [place] [phone] Neoplasm of uncertain behavior of skin Social History Tobacco Use Types Packs/Day Years Used Date Smoking Tobacco: Never Assessed Comments Unknown Sex and Gender Information Value Date Recorded Sex Assigned at Not on file Legal Sex Female 6:33 AM WEB CONSULTANT Gender Identity Not on file Sexual Orientation Not on file documented as of this encounter Plan of Treatment Not on file documented as of this encounter Procedures Procedure Name Priority Date/Time Associated Diagnosis Comments DERMATOPATHOLOGY Routine 05/30/2023 3:33 AM WEB CONSULTANT Neoplasm of uncertain behavior of skin documented in this encounter Results * DERMATOPATHOLOGY (05/30/2023 3:33 AM WEB CONSULTANT) Case Report Dermatopathology Report Case: [id number] Authorizing Provider: Manuel Monson MD Collected: 05/30/2023 03:33 AM Ordering Location: [facility] DermPath Lab Received: 05/31/2023 04:10 PM Pathologist: Le Louis MD Specimen: Skin, nasal bridge 4 5:24 PM [facility] DERMATOPATHOLOGY LABORATORY Final Diagnosis Specimen A. SKIN, nasal bridge: SQUAMOUS CELL CARCINOMA, WELL DIFFERENTIATED (C44.329) 4 5:24 PM [facility] DERMATOPATHOLOGY LABORATORY at 1724 WEB CONSULTANT Clinical History Squamous Cell Carcinoma vs. Verruca Vulgaris 4 5:24 PM [facility] DERMATOPATHOLOGY LABORATORY Gross Description Specimen A: Received is one formalin filled container labeled with the patient's name and designated nasal bridge. The specimen consists of a shave biopsy measuring 5x4x4 mm. Jar 0. 4 5:24 PM [facility] DERMATOPATHOLOGY LABORATORY Microscopic Description Specimen A. SKIN, nasal bridge: Arising in the epidermis and extending into the dermis there are irregularly shaped aggregates of keratinocytes showing evidence of premature cornification. 4 5:24 PM [facility] DERMATOPATHOLOGY LABORATORY Disclaimer An external and internal positive and negative controls are appropriate for the histochemical, immunohistochemical and immunofluorescence stain(s) in this case (if any), except where stated explicitly. The performance characteristics of the stain(s) cited in this report were developed and its performance characteristic determined by the Dermatopathology Laboratory at [facility], directed by Dr. Kimber Avila. These tests need not be, and therefore are not, approved by the [place] Food and Drug Administration. The tests are used for clinical purposes. Billing Codes Specimen Charges Stain Charges 65611 1 4 5:24 PM [facility] DERMATOPATHOLOGY LABORATORY Embedded Images 4 5:24 PM [facility] DERMATOPATHOLOGY [facility]ORY Pathology/Cytolo gy TISSUE SPECIMEN FROM SKIN / Unknown 05/30/2023 3:33 AM WEB CONSULTANT 05/31/2023 4:10 PM WEB CONSULTANT us Manuel Monson MD LAB - PATHOLOGY/CYTOLOGY ORDE JAN Final Result DERMATOPATHOLOGY LABORATORY [facility] - Department of Dermatology [address] [phone] documented in this encounter Visit Diagnoses Diagnosis Neoplasm of uncertain behavior of skin documented in this encounter Care Teams Lead Programmer Relationship Specialty Start Date End Date Arnaldo Mohan DO [address] [place] [id number] PCP - General Family Medicine Geriatric Medicine 12/12/23 documented as of this encounter
--- OUTSIDE RECORDS SUMMARY | 2025-04-16 10:50 | XMS_ITS | Clinical Summary ---
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 Overview (08/04/2016): NONTOX NODUL GOITER NOS Surgical History Surgery Date Site/Laterality Comments APPENDECTOMY [...] on file Legal Sex Female 1:25 AM WINDOW CLERK Gender Identity Not on file Sexual Orientation Not on file Last Filed Vital Signs Vital Sign Reading Time Taken Comments Blood Pressure 126/70 07/24/2024 3:08 PM CDT Pulse 75 07/24/2024 3:08 PM CDT Temperature - - Respiratory Rate - - Oxygen Saturation - - Inhaled Oxygen Concentration - - Weight 71.7 kg (158 lb) 07/24/2024 3:08 PM CDT Height 160 cm (5' 3) 07/24/2024 3:08 PM CDT Body Mass Index 27.99 07/24/2024 3:08 PM CDT Plan of Treatment Health Maintenance Due Date Last Done Comments Breast Cancer Screening-Mammogram 1956 Colon Cancer Screening-Colonoscopy 1956 Depression Screening 1956 Fall Risk Assessment 1956 Hepatitis C Screening 1956 Osteoporosis Screening-Bone Density Scan 1956 Hepatitis B Screening 1974 Well Visit 65+ 2021 Covid-19 Vaccine (2024- 6 season) 2024 01/30/2024, 01/30/2023, 02/07/2022, Additional history exists Influenza Vaccine (#1) 2024 , 01/30/2023, 02/14/2022, Additional history exists DTaP/Tdap/Td Vaccine (2 - Td or Tdap) 01/19/2030 01/20/2020, 04/29/2007 Zoster Vaccine Completed 07/01/2018, 01/28/2018 Pneumococcal vaccine 65+ Completed 11/26/2021, 04/2007 Insurance AETNA MEDICARE Care Teams Assistant Sales Center Manager Relationship Specialty Start Date End Date Sujit Segundo MD [address] [address] PCP - General 12/27/09
--- OUTSIDE RECORDS SUMMARY | 2025-04-16 10:50 | XMS_ITS | Encounter Summary ---
Author Organization [facility] Address [address] [place] [address] Care Team Providers Care Diesel Dragline Operator Name Role Phone Arnaldo Mohan DO Primary Care Provider + Encounter Details Date Type Department Care Team (Late st Contact Info) Description 08/21/2023 Lab Requisition [facility] - DermPath Lab [address] [place] [phone] Manuel Monson MD [facility] DERMATOLOGY [address] [place] [phone] Other follicular cysts of the skin and subcutaneous tissue; Other disturbances of skin sensation Social History Tobacco Use Types Packs/Day Years Used Date Smoking Tobacco: Never Assessed Comments Unknown Sex and Gender Information Value Date Recorded Sex Assigned at Not on file Legal Sex Female 6:33 AM BODY COMPONENT ENGINEER Gender Identity Not on file Sexual Orientation [...] AM CDT) Case Report Dermatopathology Report Case: [id number] Authorizing Provider: Manuel Monson MD Collected: 08/21/2023 03:33 AM Ordering Location: [facility] - Received: 08/23/2023 09:23 AM DermPath Lab Pathologist: Alejandra Bullock MD Specimen: Skin, left superior parietal scalp 2:39 PM CDT DERMATOPATHOLOGY LABORATORY Final Diagnosis Specimen A. SKIN, left superior parietal scalp: TRICHILEMMAL (PILAR) CYST (L72.12) PRESENT AT MARGIN 2:39 PM CDT DERMATOPATHOLOGY LABORATORY at 1439 CDT Clinical History Cyst. Check margins. 2:39 PM CDT DERMATOPATHOLOGY LABORATORY Gross Description Specimen A: Received is one formalin filled container labeled with the patient's name and designated left superior parietal scalp. The specimen consists of a [id number] mm piece of skin. The specimen is serially sectioned and a admissions representative section is submitted in cassette 1. [...] characteristic determined by the Dermatopathology Laboratory at [facility], directed by Dr. Kimebr Avila. These tests need not be, and therefore are not, approved by the [place] Food and Drug Administration. The tests are used for clinical purposes. Billing Codes Specimen Charges Stain Charges 60147 1 2:39 PM CDT DERMATOPATHOLOGY LABORATORY Embedded Images 2:39 PM CDT DERMATOPATHOLOGY LABORATORY Pathology/Cytolo gy TISSUE SPECIMEN FROM SKIN / Unknown 08/21/2023 3:33 AM CDT 08/23/2023 9:23 AM CDT us Manuel Monson MD LAB - PATHOLOGY/CYTOLOGY CHANDRAKANTJimmy JAN Final Result DERMATOPATHOLOGY LABORATORY [facility] - Department of Dermatology [address] [phone] documented in this encounter Visit Diagnoses Diagnosis Other follicular cysts of the skin and subcutaneous tissue Other disturbances of skin sensation documented in this encounter Care Teams Diesel Dragline Operator Relationship Specialty Start Date End Date Arnaldo Mohan DO [address] [place] [phone] PCP - General Family Medicine Geriatric Medicine 12/12/23 documented as of this encounter
== END 2025-04-16 10:17 | disposition home or self-care (01) ==
PROVIDERS: PCP Student in an Organized Health Care Education/Training Program; Visit Provider Student in an Organized Health Care Education/Training Program
DX: Z78.0 Asymptomatic menopausal state (principal); M85.88 Other specified disorders of bone density and structure, other site
CPT/HCPCS: 77080